=== PATIENT | female | born 1970 | race Caucasian/White ===

== ENCOUNTER 2019-09-05 19:12 | Emergency (ER) | payer SELFPAY ==
[2019-09-05 19:25] VITALS: BP 150/100; PULSE 95; RESP 18; TEMP 36.4; O2SAT 97; BMI 21.9
--- NOTE | 2019-09-05 19:35 | W.ED.PSYCH ---
HPI - Psych General: Chief Complaint: Psychiatric Symptoms Stated Complaint: SI Time Seen by Provider: 09/05/19 19:24 Source: patient and EMS Mode of arrival: EMS Limitations: no limitations History of Present Illness: HPI Narrative: 49-year-old female is here by EMS. Patient had her optical effects layout person called her house for disturbance. She had made a suicidal statement to them. She states to me she was just upset denies being suicidal at this point. Patient has no medical complaints at this time. Associated symptoms: Reports depression Review of Systems Const: Denies: fever(s), chills, body aches or change in appetite Eyes: Denies: blurry vision or eye discomfort ENMT: Denies: throat pain or dental pain Card: Denies: chest pain Resp: Denies: dyspnea GI: Denies: abdominal pain, nausea, vomiting or diarrhea : Denies: dysuria Musc: Denies: neck pain or back pain Skin/Breast: Denies: rash Neuro: Denies: headache(s) Psych: Reports: depression Eugenio/Lymph: Denies: easy bruising All/Imm: Denies: urticaria Physical Exam Const: COMMON NORMALS: no acute distress, patient oriented x3 and healthy appearing HENMT: COMMON NORMALS: normocephalic and atraumatic HEAD & SCALP: normocephalic and atraumatic Eye: COMMON NORMALS: Equal, round and reactive pupils present and EOMs intact bilaterally PUPIL: Yes Equal, round and reactive pupils present Neck/C-Spine: COMMON NORMALS: full ROM and supple Chest: COMMONS NORMALS: normal inspection of the chest and normal palpation of entire chest wall Resp: COMMON NORMALS: normal respiratory effort, No retractions, No use of accessory muscles and clear to auscultation bilaterally AUSCULTATION: clear to auscultation bilaterally Cardio: COMMON NORMALS: regular rate, regular rhythm and No murmurs present (Cardio) RATE: regular rate RHYTHM: regular rhythm GI: COMMON NORMALS: Normal to inspection, nondistended, normoactive bowel sounds present, Soft to palpation, non-tender and no masses PALPATION: Yes Soft to palpation Extremity: COMMON NORMALS: normal to inspection and full ROM Neuro: COMMON NORMALS: patient oriented x3, moves all extremities and no focal motor deficits Psych: COMMON NORMALS: mental status grossly normal, Normal thought process present and cooperative THOUGHT PROCESS: Normal thought process present Skin: COMMON NORMALS: no rashes or lesions noted and no wounds GENERAL SKIN EXAM: no rashes or lesions noted MDM - Psych MDM Narrative: Medical decision making narrative: Patient presents here with depression with no active suicidality. Patient spoke to Dr. Valadez of psychiatry he agrees that she is not actively suicidal and does not believe she needs admission. We will get her follow-up with both cars and she is stable for discharge. I informed her to return to the ER if worsening. Lab Data: Labs: Lab Results 09/05/19 09/05/19 Range/Units 19:35 19:35 WBC 4.7 (4.0-10.0) 10^3/ uL RBC 3.60 L (4.1-5.3) 10^6/u L Hgb 12.2 (11.5-15.3) g/dL Hct 36.6 L (37.0-47.0) % MCV 101.7 H (81-99) fL MCH 33.9 (28.0-34.0) pg MCHC 33.3 (30.0-36.0) g/dL RDW 14.1 (12.1-15.1) % Plt Count 189 (130-400) 10^3/c mm MPV 10.5 H (7.4-10.4) fL Neut % (Auto) 49.3 % Lymph % (Auto) 39.5 % [place] % (Auto) 8.4 % Eos % (Auto) 1.1 % Baso % (Auto) 1.1 % Neut # (Auto) 2.30 (1.8-7.7) 10^3/u L Lymph # (Auto) 1.8 (0.8-4.8) 10^3/u L [place] # (Auto) 0.4 (0.2-0.9) 10^3/u L Eos # (Auto) 0.1 (0.0-0.8) 10^3/u L Baso # (Auto) 0.1 (0.0-0.1) 10^3/u L Nucleated RBC % (a uto) 0 % Nucleated RBCs # 0.0 /100WBC Sodium 144 (136-145) mmol/L Potassium 3.4 L (3.5-5.1) mmol/L Chloride 106 (98-107) mmol/L Carbon Dioxide 25 (22-29) mmol/L Anion Gap 16.4 (5-19) BUN 6 (6-20) mg/dL Creatinine 0.7 (0.5-0.9) mg/dL GFR Calculation 88.6 L (90-130) mL/min Glucose 106 (65-115) mg/dL Calculated Osmolal ity 294 (285-295) mOsm/k g Calcium 9.5 (8.5-10.5) mg/dL Total Bilirubin 0.2 (0.15-1.2) mg/dL AST 54 H (0-32) U/L ALT 24 (0-33) U/L Alkaline Phosphata se 98 (35-105) IU/L Total Protein 7.7 (6.6-8.7) g/dL Albumin 4.8 (3.5-5.2) g/dL Globulin 2.9 (1.3-4.6) g/dL Discharge Plan Discharge Patient Disposition: Home Clinical Impression: Alcohol use Depression Qualifiers: Depression Type: unspecified Qualified Code(s): F32.9 - Major depressive disorder, single episode, unspecified Condition: Stable Prescriptions: No Action No Known Home Medications RF: 0 Discharge Orders: Discharge Order (Routine); Ordered 09/05/19 Ordered By: Zuri Borja Discharge Diet: Advance as tolerated Discharge Activity: Resume usual activity Patient Instructions: Depression (ED) Discharge Date/Time: 09/05/19 20:27 Coding Level of Care Code ED State Auditor for Macy Fwd Exam Comprehensive
[2019-09-05 19:40] LABS: Basophils # 0.1 10^3/uL (0.0-0.1); Basophils % 1.1 %; Eosinophils # 0.1 10^3/uL (0.0-0.8); Eosinophils % 1.1 %; Hematocrit 36.6 % (37.0-47.0); Hemoglobin 12.2 g/dL (11.5-15.3); Lymphocytes # 1.8 10^3/uL (0.8-4.8); Lymphocytes % 39.5 %; Mean Corpuscular HGB Conc 33.3 g/dL (30.0-36.0); Mean Corpuscular Hemoglobin 33.9 pg (28.0-34.0); Mean Corpuscular Volume 101.7 fL (81-99); Mean Platelet Volume 10.5 fL (7.4-10.4); Monocytes # 0.4 10^3/uL (0.2-0.9); Monocytes % 8.4 %; Neutrophils % 49.3 %; Nucleated Red Blood Cells % 0 %; Platelet Count 189 10^3/cmm (130-400); Red Cell Distribution Width 14.1 % (12.1-15.1); White Blood Count 4.7 10^3/uL (4.0-10.0)
[2019-09-05 20:06] LABS: Alanine Aminotransferase 24 U/L (0-33); Albumin Level 4.8 g/dL (3.5-5.2); Alkaline Phosphatase 98 IU/L (35-105); Anion Gap 16.4 (5-19); Aspartate Amino Transferase 54 U/L (0-32); Blood Urea Nitrogen 6 mg/dL (6-20); Calcium 9.5 mg/dL (8.5-10.5); Carbon Dioxide 25 mmol/L (22-29); Chloride 106 mmol/L (98-107); Globulin 2.9 g/dL (1.3-4.6); Glomerular Filtration Rate 88.6 mL/min (90-130); Glucose 106 mg/dL (65-115); Osmolality Calculated 294 mOsm/kg (285-295); Potassium 3.4 mmol/L (3.5-5.1); Sodium 144 mmol/L (136-145); Total Bilirubin 0.2 mg/dL (0.15-1.2); Total Protein 7.7 g/dL (6.6-8.7)
[2019-09-05 20:21] VITALS: BP 136/102; PULSE 98; RESP 18; O2SAT 96
[2019-09-05 20:30] LABS: Acetaminophen < 5.0 ug/mL (10-30); Salicylate < 0.3 mg/dL (3-10)
[2019-09-05 20:32] LABS: Alcohol Level 337 mg/dL (0-10)
--- NOTE | 2019-09-06 08:48 | PC.SOCIAL ---
Referral from ED provider spoke with staff at [facility] and Yanelis the resident care coordinator has been notified of patient needing set up. She will send out paperwork and follow up with patient. Spoke with patient and updated her on this process since she has not been seen in last year. Provided [facility] number as well. Patient was appreciative and verbalized no other questions.
== END 2019-09-05 20:27 | disposition home or self-care (01) ==
PROVIDERS: Emergency Provider Emergency Medicine
DX: F32.9 Major depressive disorder, single episode, unspecified (principal); Z72.89 Other problems related to lifestyle
CPT/HCPCS: 12345; 36415; 80053; 80307; 85025; 99282

== ENCOUNTER 2021-08-01 18:31 | Emergency (ER) | payer MEDICAID, SELFPAY ==
[2021-08-01 18:40] VITALS: BP 146/89; PULSE 100; RESP 18; TEMP 36.7; O2SAT 94; BMI 21.2
--- NOTE | 2021-08-01 18:49 | XRR_ITS ---
PROCEDURE INFORMATION: Exam: XR Right Elbow Exam date and time: 08/01/2021 7:11 PM Age: 51 years old Clinical indication: Injury or trauma; Fall; Blunt trauma (contusions or hematomas); Elbow; Right; Additional info: Fall R elbow pain TECHNIQUE: Imaging protocol: Radiologic exam of the Right elbow. Views: 3 or more views. COMPARISON: CR Clavicle RIGHT 02/20/2015 12:22 PM FINDINGS: Bones/joints: Enthesophyte off the lateral epicondyle of the distal humerus. Radial head not well seen secondary to positioning. Soft tissues: Anterior fat pad appears elevated. XR/XR elbow RT min 3V* [id number] IMPRESSION: 1. Anterior fat pad appears elevated raising concern for occult fracture. 2. Radial head is not well seen secondary to positioning. CT scan of the elbow recommended for further evaluation.
--- NOTE | 2021-08-01 18:49 | XRR_ITS ---
PROCEDURE INFORMATION: Exam: XR Chest Exam date and time: 08/01/2021 7:04 PM Age: 51 years old Clinical indication: Injury or trauma; Fall; Blunt trauma (contusions or hematomas) TECHNIQUE: Imaging protocol: Radiologic exam of the chest. Views: 1 view. COMPARISON: CR Clavicle RIGHT 02/20/2015 12:22 PM FINDINGS: Lungs: Unremarkable. No consolidation. Pleural spaces: Unremarkable. No pleural effusion. No pneumothorax. Heart/Mediastinum: Unremarkable. No cardiomegaly. Bones/joints: There are fractures of unknown chronicity at the posterior aspects of the right 9th and 10th ribs. No significant displacement is seen. XR/XR chest 1V portable [id number] IMPRESSION: There are fractures of unknown chronicity at the posterior aspects of the right 9th and 10th ribs.
--- NOTE | 2021-08-01 18:49 | XRR_ITS ---
PROCEDURE INFORMATION: Exam: XR Right Hip Exam date and time: 08/01/2021 7:09 PM Age: 51 years old Clinical indication: Injury or trauma; Fall; Blunt trauma (contusions or hematomas); Right; Hip; Additional info: Fall R hip pain TECHNIQUE: Imaging protocol: Radiologic exam of the Right hip. Views: 1 view hip with pelvis when performed. COMPARISON: No relevant prior studies available. FINDINGS: Bones/joints: There small marginal osteophytes across the right hip joint. There are [id number] degenerative changes across the pubic symphysis and right sacroiliac joint. There is edema and/or hematoma in the soft tissues lateral to the right greater trochanter. There is an ill-defined oblique lucency through the lateral aspect of the greater trochanter seen on 1 image only. Soft tissues: There are benign-appearing soft tissue calcifications. XR/XR hip RT 2-3V wo/w pel* [id number] IMPRESSION: 1. Ill-defined oblique lucency through the lateral aspect of the greater trochanter is seen only on 1 image and may be artifactual. Nondisplaced fracture cannot be excluded. Consider CT scan of the right hip for further evaluation as clinically warranted. 2. There is edema and/or hematoma in the soft tissues lateral to the right greater trochanter.
--- NOTE | 2021-08-01 19:00 | ED_ITS ---
HPI - Fall General: Chief Complaint: Fall Stated Complaint: RIGHT HIP/ELBOW PAIN S/P FALL Time Seen by Provider: 08/01/21 18:34 Source: patient History of Present Illness: 51-year-old female who evidently fell last night in her home. She experienced right hip and right elbow pain. The pain has been quite severe. She could only scoot around on the floor to get to the bathroom into the bed. She also used an office chair with wheels to roll around. She seems very slightly confused/possibly intoxicated on interview. MD complaint: fall Onset (ago): hour(s) Fall from: standing Fall witnessed: yes, by family Place fall occurred: home Loss of consciousness: None Prolonged down time: no Symptoms prior to fall: none Context: tripped/slipped Location of injury - extremities: Right: elbow and thigh Severity: moderate Quality: stabbing Associated symptoms-after fall: Reports confusion (Possibly mild); Denies abdominal pain, chest pain, headache(s), neck pain, short of breath or weakness Review of Systems Const: Denies: fever(s) or chills ENMT: Denies: throat pain Card: Denies: chest pain GI: Denies: abdominal pain Musc: Denies: neck pain Neuro: Reports: confusion (Possibly mild); Denies: headache(s) PFSH ED PFSH: Medical History (Updated 08/01/21 @ 20:56 by Can Lehman DO) NASEEM (generalized anxiety disorder) Problems related to lack of adequate sleep Psychiatric care Social History Current gender identity: Female Course Vital Signs: Vital signs: Vital Signs Temperature 98.0 F 08/01/21 18:40 Pulse Rate 94 08/01/21 21:34 Respiratory Rate 18 08/01/21 21:34 Blood Pressure 152/94 08/01/21 21:34 Pulse Oximetry 94 08/01/21 21:34 MDM - Fall Medical Decision Making Alcohol level is elevated. This patient is a potassium of 2.9. Other labs are benign. Elbow x-ray shows an elevated fat pad. CT is suggested, but there is no displaced fracture noted. There is appears to be a slight deformity of the radial neck, which would account for the fat pad. CT not really clinically indicated, as the treatment is a sling and early motion. X-ray of the hip reveals a greater trochanteric nondisplaced fracture. Again CT is suggested, but not clinically necessary. This is a nonsurgical fracture. Chest x-ray reveals likely chronic fractures of the ninth and 10th ribs. The patient has no tenderness in her chest wall that is significant. No evidence of lung contusion. No pneumothorax. She will be discharged. Lab Data : 08/01/21 18:30 08/01/21 18:30 Radiology Impressions Chest X-Ray 08/01/21 18:49 IMPRESSION: There are fractures of unknown chronicity at the posterior aspects of the right 9th and 10th ribs. Elbow X-Ray 08/01/21 18:49 IMPRESSION: 1. Anterior fat pad appears elevated raising concern for occult fracture. 2. Radial head is not well seen secondary to positioning. CT scan of the elbow recommended for further evaluation. Hip/Pelvis X-Ray 08/01/21 18:49 IMPRESSION: 1. Ill-defined oblique lucency through the lateral aspect of the greater trochanter is seen only on 1 image and may be artifactual. Nondisplaced fracture cannot be excluded. Consider CT scan of the right hip for further evaluation as clinically warranted. 2. There is edema and/or hematoma in the soft tissues lateral to the right greater trochanter. Laboratory Results WBC 9.0 10^3/uL (4.0-10.0) 08/01/21 18:30 RBC 3.71 10^6/uL (4.1-5.3) L 08/01/21 18:30 Hgb 11.9 g/dL (11.5-15.3) 08/01/21 18: Hct 36.2 % (37.0-47.0) L 08/01/21 18: MCV 97.6 fl (81-99) 08/01/21 18:30 MCH 32.1 pg (28.0-34.0) 08/01/21 18:30 MCHC 32.9 g/dL (30.0-36.0) 08/01/21 18:30 RDW 13.2 % (12.1-15.1) 08/01/21 18:30 Plt Count 263 10^3/cmm (130-400) 08/01/21 18: MPV 10.9 fL (7.4-10.4) H 08/01/21 18:30 Neut % (Auto) 68.1 % 08/01/21 18:30 Lymph % (Auto) 21.4 % 08/01/21 18:30 [place] % (Auto) 9.7 % 08/01/21 18:30 Eos % (Auto) 0.2 % 08/01/21 18:30 Baso % (Auto) 0.3 % 08/01/21 18:30 Neut # (Auto) 6.13 10^3/uL (1.8-7.7) 08/01/21 18:30 Lymph # (Auto) 1.9 10^3/uL (0.8-4.8) 08/01/21 18:30 [place] # (Auto) 0.9 10^3/uL (0.2-0.9) 08/01/21 18:30 Eos # (Auto) 0.0 10^3/uL (0.0-0.8) 08/01/21 18:30 Baso # (Auto) 0.0 10^3/uL (0.0-0.1) 08/01/21 18:30 Nucleated RBC % (auto) 0 % 08/01/21 18:30 Nucleated RBCs # 0.0 /100WBC 08/01/21 18:30 PT 14.00 SECONDS (12.1-14.9) 08/01/21 20:15 INR 1.05 (0.8-1.2) 08/01/21 20:15 Sodium 140 mmol/L (136-145) 08/01/21 18:30 Potassium 2.9 mmol/L (3.5-5.1) L 08/01/21 18:30 Chloride 99 mmol/L (98-107) 08/01/21 18:30 Carbon Dioxide 23 mmol/L (22-29) 08/01/21 18:30 Anion Gap 20.9 (5-19) H 08/01/21 18:30 BUN 7 mg/dL (6-20) 08/01/21 18:30 Creatinine 0.6 mg/dL (0.5-0.9) 08/01/21 18:30 GFR Calculation 105.0 mL/min (90-130) 08/01/21 18:30 Glucose 86 mg/dL (65-115) 08/01/21 18:30 Calculated Osmolality 287 mOsm/kg (285-295) 08/01/21 18:30 Calcium 9.1 mg/dL (8.5-10.5) 08/01/21 18:30 Total Bilirubin 0.5 mg/dL (0.15-1.2) 08/01/21 18:30 AST 27 U/L (0-32) 08/01/21 18:30 ALT 9 U/L (0-33) 08/01/21 18:30 Alkaline Phosphatase 78 IU/L (35-105) 08/01/21 18:30 Total Protein 7.4 g/dL (6.6-8.7) 08/01/21 18:30 Albumin 4.3 g/dL (3.5-5.2) 08/01/21 18:30 Globulin 3.1 g/dL (1.3-4.6) 08/01/21 18:30 Ethyl Alcohol 208 mg/dL (0-10) H 08/01/21 18:30 Discharge Plan Discharge Patient Disposition: Home Clinical Impression: Closed fracture of greater trochanter of right femur, Fracture of neck of right radius, Alcohol intoxication Condition: Stable Prescriptions: New hydrocodone-acetaminophen 5-325 mg tablet 1 tab PO Q8H PRN (Reason: pain) Qty: 10 0RF No Action trazodone 150 mg tablet 150 mg PO .qhs PRN (Reason: insomnia) Qty: 30 1RF Rx Instructions: May take up to 1 tablet daily at bedtime, if needed for insomnia fluoxetine 20 mg capsule 20 mg PO QAM Qty: 30 1RF Rx Instructions: Take one capsule by mouth every morning clonazepam 0.5 mg tablet 0.5 mg PO DAILY PRN (Reason: anxiety) 30 Days Qty: 60 1RF Rx Instructions: take one tablet up to twice a day, if needed, for anxiety losartan 100 mg tablet 100 mg PO DAILY 0RF Discharge Orders: Discharge ED (Routine); Ordered 08/01/21 Ordered By: Can Lehman Referrals: Volodymyr Driver DO [Physician] - 4-7 days Bethel Beth MD [Primary Care Provider] - 4-7 days Patient Instructions: Elbow Fracture (ED), Avulsion Fracture (ED), Opioid Safety Activity Restrictions/Additional Instructions: Your fractures are nonsurgical. Your weightbearing should be limited to toe- touch on the right hip, so use a crutch in your left hand for weightbearing. Sling to the right elbow, with early motion in the first 5 to 7 days. Ice will help with pain. Call orthopedic clinic on Tuesday morning to set up an appointment this coming week. Return for any problems. Coding Level of Care Code ED Sales Planning Coordinator for Macy Perez
[2021-08-01 19:07] LABS: Basophils % 0.3 %; Eosinophils % 0.2 %; Hematocrit 36.2 % (37.0-47.0); Hemoglobin 11.9 g/dL (11.5-15.3); Lymphocytes # 1.9 10^3/uL (0.8-4.8); Lymphocytes % 21.4 %; Mean Corpuscular HGB Conc 32.9 g/dL (30.0-36.0); Mean Corpuscular Hemoglobin 32.1 pg (28.0-34.0); Mean Corpuscular Volume 97.6 fl (81-99); Mean Platelet Volume 10.9 fL (7.4-10.4); Monocytes # 0.9 10^3/uL (0.2-0.9); Monocytes % 9.7 %; Neutrophils # 6.13 10^3/uL (1.8-7.7); Neutrophils % 68.1 %; Nucleated Red Blood Cells % 0 %; Platelet Count 263 10^3/cmm (130-400); Red Blood Count 3.71 10^6/uL (4.1-5.3); Red Cell Distribution Width 13.2 % (12.1-15.1)
[2021-08-01 19:17] LABS: Alanine Aminotransferase 9 U/L (0-33); Albumin Level 4.3 g/dL (3.5-5.2); Alcohol Level 208 mg/dL (0-10); Alkaline Phosphatase 78 IU/L (35-105); Anion Gap 20.9 (5-19); Aspartate Amino Transferase 27 U/L (0-32); Blood Urea Nitrogen 7 mg/dL (6-20); Calcium 9.1 mg/dL (8.5-10.5); Carbon Dioxide 23 mmol/L (22-29); Chloride 99 mmol/L (98-107); Globulin 3.1 g/dL (1.3-4.6); Glucose 86 mg/dL (65-115); Osmolality Calculated 287 mOsm/kg (285-295); Sodium 140 mmol/L (136-145); Total Bilirubin 0.5 mg/dL (0.15-1.2); Total Protein 7.4 g/dL (6.6-8.7)
--- NOTE | 2021-08-01 19:18 | PC.NURSE ---
Pt states she was walking down the road and tripped over a tree limb. Pt stated she laid in the laid for a few minutes then I walked home approximately 3 blocks. Pt states she caught herself with the right arm, and has become painful and difficult to move. Pt states right hip may be dislocated and she can not walk on it. Bilateral pedal pulse palpitable.
[2021-08-01 19:20] VITALS: BP 130/85; PULSE 103; RESP 18; O2SAT 93
[2021-08-01] MEDS: sodium chloride 0.9% 1,000 ML 999 ML IV (19:29)
[2021-08-01 19:34] LABS: Potassium 2.9 mmol/L (3.5-5.1)
[2021-08-01] MEDS: potassium chloride ER 20 mEq Tablet 40 MEQ PO (20:14)
[2021-08-01 20:30] LABS: INR 1.05 (0.8-1.2)
[2021-08-01 21:34] VITALS: BP 152/94; PULSE 94; RESP 18; O2SAT 94
== END 2021-08-01 21:35 | disposition home or self-care (01) ==
PROVIDERS: Emergency Provider Emergency Medicine; PCP Family Medicine
DX: S72.111A Displaced fracture of greater trochanter of right femur, initial encounter for closed fracture (principal); S52.131A Displaced fracture of neck of right radius, initial encounter for closed fracture; F10.129 Alcohol abuse with intoxication, unspecified; Y90.7 Blood alcohol level of 200-239 mg/100 ml; W19.XXXA Unspecified fall, initial encounter
CPT/HCPCS: 71045; 73080; 73502; 80053; 80307; 85025; 85610; 96360; 99284; E0114; J7030

== ENCOUNTER 2022-09-29 10:46 | Emergency (ER) | payer MEDICAID, SELFPAY ==
[2022-09-29 10:50] VITALS: BP 191/109; PULSE 80; RESP 15; O2SAT 99
--- NOTE | 2022-09-29 11:44 | PC.PHAR ---
pt states she takes 800 mg of ibuprofen and two midol all at one time for pain
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
[2022-09-29] MEDS: ketorolac 60 mg/2 mL INJ IM (12:37)
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
[2022-09-29 13:29] VITALS: RESP 18; O2SAT 98
[2022-09-29] MEDS: morphine 4 mg/mL SDV 1 mL IM (13:29)
--- NOTE | 2022-09-30 09:38 | DCPLANNER ---
Addendum entered by Yissel Boateng 10/08/22 10:33: Patient did not attend appointment scheduled with ortho Addendum entered by Yissel Boateng 10/06/22 12:37: Patient has a follow up appointment scheduled for September at 11:00 with Bushra Carroll at ortho. Addendum entered by Yissel Boateng 10/04/22 15:36: clinical nutrition manager received the following message from the ortho clinic regarding follow up appointment: attempt made to contact patient - left vm to call our clinic to schedule w/ dr dickens or bushra lozano - we can get in next week Original Note: clinical nutrition manager had message to schedule a follow up appointment for patient with ortho. clinical nutrition manager sent patients information to the front office staff at ortho. Patients information will be printed and reviewed. Clinic will call patient with appointment information.
--- NOTE | 2022-10-04 15:37 | DCPLANNER ---
logistics project manager called patient due to no primary care physician - no answer at this time.
== END 2022-09-29 15:02 | disposition home or self-care (01) ==
PROVIDERS: Emergency Provider Physician Assistant
DX: S32.10XA Unspecified fracture of sacrum, initial encounter for closed fracture (principal); V29.39XA Other motorcycle (driver) (passenger) injured in unspecified nontraffic accident, initial encounter
CPT/HCPCS: 72192; 72220; 73030; 73130; 73522; 96372; 99284; J1885; J2270

== ENCOUNTER → 2022-11-03 10:11 | Outpatient (BNVA) | payer MEDICAID, SELFPAY | PROVIDERS: Visit Provider Family Medicine | DX: M79.671 Pain in right foot (principal) | CPT/HCPCS: 73630 ==

== ENCOUNTER → 2023-05-04 09:25 | Outpatient (BNVA) | payer MEDICAID, SELFPAY | PROVIDERS: Visit Provider Podiatrist Foot & Ankle Surgery | DX: M19.072 Primary osteoarthritis, left ankle and foot; S92.325S Nondisplaced fracture of second metatarsal bone, left foot, sequela; V20.09 Other motorcycle driver injured in collision with pedestrian or animal in nontraffic accident | CPT/HCPCS: 73630 ==

== ENCOUNTER 2023-09-06 10:56 | Emergency (ER) | payer MEDICAID, SELFPAY ==
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
[2023-09-06 11:00] VITALS: BP 156/96; PULSE 79; TEMP 36.9; O2SAT 98; BMI 19.8
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
[2023-09-06 11:10] VITALS: PULSE 69; RESP 16; O2SAT 98
[2023-09-06] MEDS: HYDROcodone-acetaminophen 5-325 mg Tablet 1 TAB PO (11:15)
--- NOTE | 2023-09-07 07:30 | DCPLANNER ---
Message sent to Danni/ Melissa for follow up on knee sprain-
== END 2023-09-06 12:15 | disposition home or self-care (01) ==
PROVIDERS: Emergency Provider Emergency Medicine
DX: S83.91XA Sprain of unspecified site of right knee, initial encounter (principal); Z72.0 Tobacco use; W18.40XA Slipping, tripping and stumbling without falling, unspecified, initial encounter
CPT/HCPCS: 29530; 73562; 99283; E0114

== ENCOUNTER → 2023-09-30 10:33 | Outpatient (BNVA) | payer OTHER, MEDICAID, SELFPAY | PROVIDERS: PCP Nurse Practitioner; Referring Provider Emergency Medicine; Visit Provider Nurse Practitioner | DX: M25.561 Pain in right knee (principal); S83.206A Unspecified tear of unspecified meniscus, current injury, right knee, initial encounter; Z87.828 Personal history of other (healed) physical injury and trauma; W10.9XXA Fall (on) (from) unspecified stairs and steps, initial encounter | CPT/HCPCS: 73560; 73565 ==

== ENCOUNTER 2024-03-30 08:57 | Inpatient (IN) | payer MEDICAID, SELFPAY ==
[2024-03-30] VITALS (9 sets, daily range): BP systolic 146–169; BP diastolic 92–130; PULSE 85–103; RESP 15–95; TEMP 36.4–37.5; O2SAT 94–98; BMI 21.9
--- NOTE | 2024-03-30 09:04 | XR_ITS ---
WS: [id number] Exam: XR chest 1V portable [id number] Date/Time of Exam: 03/30/2024 9:06 AM Reason For Exam: dyspnea/cough Comparison 08/01/2021. Lungs are clear and fully inflated. Normal cardiomediastinal silhouette. Bony structures are intact. XR/XR chest 1V portable [id number] IMPRESSION: 1. No acute cardiopulmonary finding.
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
--- NOTE | 2024-03-30 09:05 | ECG_ITS ---
All Together Now [facility] Test Date: 2024-03-30 Pat Name: Alison Craig Department: Room: Gender: Female Portable Canteen Operator: : 1970 Requested By: Efraín Quiles Order Number: [id number] Reading MD: CRUZITO SOTO Measurements Intervals [place] Rate: 94 P: 67 [place]: 120 QRS: 18 QRSD: 76 T: 83 QT: 363 QTc: 455 Interpretive Statements SINUS RHYTHM POSSIBLE RIGHT VENTRICULAR CONDUCTION DELAY [RSR (QR) IN V1/V2] Compared to ECG 12/25/2014 06:07:08 No significant changes Electronically Signed On 04-03-2024 23:44:32 FUNDRAISING MANAGER by CRUZITO SOTO [email or web address]
--- NOTE | 2024-03-30 09:38 | ED_ITS ---
HPI - Extremity Problem 2 General: Chief complaint: Extremity Injury, Upper Stated complaint: right humerus fx Time Seen by Provider: 03/30/24 09:00 History of Present Illness: 53-year-old female presents to the emerg ency room obvious deformity of the proximal right humerus. She fell last night ground-level mechanical fall she had been drinking. She fell around 10 PM outside she was able to get herself back into the house laid on the floor all night. EMS was finally called and she refused transport at around 2 AM and called for this again allowed for transport this morning Associated symptoms: Deny chest pain, fever(s) or rash Related Data Home Medications ?Medication ?Instructions ?Recorded ?Confirmed lisinopril 20 mg tablet 20 mg PO DAILY 08/03/2303/11 Allergies Allergy/AdvReac Type Severity Reaction Status Date / Time No Known Allergies Allergy Verified 09/30/23 10:43 Review of Systems 2 Const: Denies: fever(s) or chills Card: Denies: chest pain Resp: Denies: dyspnea GI: Denies: abdominal pain : Denies: dysuria, urinary frequency or urinary urgency Musc: Denies: neck pain or back pain Skin/Breast: Denies: rash PFSH ED 2 PFSH: Medical History History of tear of ACL (anterior cruciate ligament) Jason sign present in right knee Fall from standing NASEEM (generalized anxiety disorder) Problems related to lack of adequate sleep Social History Smoking and tobacco/nicotine status: never used tobacco/nicotine Current gender identity: Female Physical Exam 2 Const: GENERAL APPEARANCE: cooperative ORIENTATION/CONSCIOUSNESS: Yes awake, Yes oriented to person, Yes oriented to place and Yes oriented to time HENMT: COMMON NORMALS: normocephalic, atraumatic and hearing grossly normal bilaterally HEAD & SCALP: normocephalic and atraumatic Resp: COMMON NORMALS: normal respiratory effort, No retractions, No use of accessory muscles and clear to auscultation bilaterally AUSCULTATION: clear to auscultation bilaterally Cardio: COMMON NORMALS: regular rate, regular rhythm and No murmurs present (Cardio) RATE: regular rate RHYTHM: regular rhythm GI: COMMON NORMALS: Soft to palpation and No hepatosplenomegaly present A USCULTATION: Yes normoactive bowel sounds PALPATION: Yes Soft to palpation, No Tenderness to palpation present (GI), No Guarding due to palpation present (GI) and Yes No hepatosplenomegaly present Extremity: OTHER: Deformity mid to proximal right humerus. Neurovascularly intact Neuro: SENSORIUM/ORIENTATION: Yes oriented to person, Yes oriented to place and Yes oriented to time Skin: COMMON NORMALS: no rashes or lesions noted GENERAL SKIN EXAM: no rashes or lesions noted Course 2 Vital Signs: Vital signs: Vital Signs Temperature 97.6 F 03/30/24 12:37 Pulse Rate 101 H 03/30/24 12:37 Respiratory Rate 16 03/30/24 13:40 Blood Pressure 168/130 03/30/24 12:37 Pulse Oximetry 95 03/30/24 12:37 Oxygen Delivery Me thod Room Air 03/30/24 12:37 MDM - Extremity (Nontraumatic) Medical Decision Making Patient's blood alcohol is still considerably elevated. She admits that been drinking fairly heavily last night when this happened. No concern for fracture may become aggravated if she continues to drink discussed with hospitalist will admit consult orthopedics have discussed Dr. Driver on-call for orthopedics he will proceed with [facility] Medical Records I reviewed the patient's medical records. Lab Data I reviewed the patient's lab results. 03/30/24 09:30 03/30/24 09:30 Radiology Impressions Cervical Spine CT 03/30/24 09:04 IMPRESSION: 1. No acute cervical spine fracture. 2. Left-sided facet joint arthropathy most significant at C3-4 and C4-5. 3. No high-grade central stenosis. Chest X-Ray 03/30/24 09:04 IMPRESSION: 1. No acute cardiopulmonary finding. Head CT 03/30/24 09:04 IMPRESSION: 1. No acute intracranial hemorrhage or edema. 2. Moderate cerebral atrophy and small vessel disease. More than expected for a patient of this age. 3. Numerous bilateral lacunar infarcts as above. Humerus X-Ray 03/30/24 09:04 IMPRESSION: 1. Comminuted spiral fracture of the upper humerus with some displacement as noted above. The fracture extends into the greater tuberosity. Laboratory Results WBC 14.16 10^3/uL (3.29-11.43) H 03/30/24 09:30 RBC 4.18 10^6/uL (3.85-5.65) 03/30/24 09:30 Hgb 12.60 g/dL (11.27-16.99) 03/30/24 09:30 Hct 38.4 % (36-47) 03/30/24 09:30 MCV 91.9 fl (85-98) 03/30/24 09:30 MCH 30.1 pg (27-33) 03/30/24 09:30 MCHC 32.8 g/dL (30-55) 03/30/24 09:30 RDW 15.2 % (12.1-15.1) H 03/30/24 09:30 Plt Count 344 10^3/cmm (157-399) 03/30/24:30 MPV 10.5 fL (7.4-10.4) H 03/30/24 09:30 Neut % (Auto) 87.3 % 03/30/24 09:30 Lymph % (Auto) 6.6 % 03/30/24:30 [place] % (Auto) 5.3 % 03/30/24 09:30 Eos % (Auto) 0.0 % 03/30/24 09:30 Baso % (Auto) 0.3 % 03/30/24 09:30 Neut # (Auto) 12.36 10^3/uL (1.8-7.7) H 03/30/24 09:30 Lymph # (Auto) 0.9 10^3/uL (0.8-4.8) 03/30/24 09:30 [place] # (Auto) 0.8 10^3/uL (0.2-0.9) 03/30/24 09:30 Eos # (Auto) 0.0 10^3/uL (0.0-0.8) 03/30/24 09:30 Baso # (Auto) 0.0 10^3/uL (0.0-0.1) 03/30/24 09:30 Nucleated RBC % (auto) 0 % 03/30/24:30 Nucleated RBCs # 0.0 /100WBC 03/30/24:30 PT 12.70 SECONDS (12.1-14.9) 03/30/24 09:30 INR 0.89 (0.8-1.2) 03/30/24 09:30 Sodium 140 mmol/L (136-145) 03/30/24 09:30 Potassium 3.8 mmol/L (3.5-5.1) 03/30/24 09:30 Chloride 100 mmol/L (98-107) 03/30/24 09:30 Carbon Dioxide 22 mmol/L (22-29) 03/30/24 09:30 Anion Gap 21.8 (5-19) H 03/30/24 09:30 BUN 13 mg/dL (6-20) 03/30/24 09:30 Creatinine 0.6 mg/dL (0.5-0.9) 03/30/24 09:30 GFR Calculation 104.2 mL/min (90-130) 03/30/24 09:30 Glucose 146 mg/dL (65-115) H 03/30/24 09:30 Calculated Osmolality 293 mOsm/kg (285-295) 03/30/24 09:30 Calcium 8.7 mg/dL (8.5-10.5) 03/30/24 09:30 Total Bilirubin 0.4 mg/dL (0.15-1.2) 03/30/24 09:30 AST 48 U/L (0-32) H 03/30/24 09:30 ALT 25 U/L (0-33) 03/30/24 09:30 Alkaline Phosphatase 108 U/L (35-105) H 03/30/24 09:30 Ammonia 19 umol/L (11-51) 03/30/24 09:30 Creatine Kinase 223 U/L (26-192) H 03/30/24 09:30 Total Protein 7.9 g/dL (6.6-8.7) 03/30/24 09:30 Albumin 4.3 g/dL (3.5-5.2) 03/30/24 09:30 Globulin 3.6 g/dL (1.3-4.6) 03/30/24 09:30 Lipase 23 U/L (13-60) 03/30/24 09:30 Ethyl Alcohol 75 mg/dL (0-10) H 03/30/24 09:30 All radiology interpretation(s) finalized by discharge Discharge Plan Discharge Patient Disposition: Admitted As Inpatient Admit Provider: Elier Curran Clinical Impression: Fall from standing, Closed right humeral fracture, Alcohol intoxication, ETOH abuse Condition: Stable Coding Level of Care Code ED Child Care Counselor for Macy Perez
[2024-03-30 09:51] LABS: Basophils % 0.3 %; Hematocrit 38.4 % (36-47); Lymphocytes # 0.9 10^3/uL (0.8-4.8); Lymphocytes % 6.6 %; Mean Corpuscular HGB Conc 32.8 g/dL (30-55); Mean Corpuscular Hemoglobin 30.1 pg (27-33); Mean Corpuscular Volume 91.9 fl (85-98); Mean Platelet Volume 10.5 fL (7.4-10.4); Monocytes # 0.8 10^3/uL (0.2-0.9); Monocytes % 5.3 %; Neutrophils # 12.36 10^3/uL (1.8-7.7); Neutrophils % 87.3 %; Nucleated Red Blood Cells % 0 %; Platelet Count 344 10^3/cmm (157-399); Red Blood Count 4.18 10^6/uL (3.85-5.65); Red Cell Distribution Width 15.2 % (12.1-15.1); White Blood Count 14.16 10^3/uL (3.29-11.43)
[2024-03-30 10:06] LABS: INR 0.89 (0.8-1.2)
[2024-03-30 10:11] LABS: Alanine Aminotransferase 25 U/L (0-33); Albumin Level 4.3 g/dL (3.5-5.2); Alcohol Level 75 mg/dL (0-10); Alkaline Phosphatase 108 U/L (35-105); Anion Gap 21.8 (5-19); Aspartate Amino Transferase 48 U/L (0-32); Blood Urea Nitrogen 13 mg/dL (6-20); Calcium 8.7 mg/dL (8.5-10.5); Carbon Dioxide 22 mmol/L (22-29); Chloride 100 mmol/L (98-107); Creatine Phosphokinase 223 U/L (26-192); Creatinine Clr Calc Pharmacy 105.5232; Globulin 3.6 g/dL (1.3-4.6); Glomerular Filtration Rate 104.2 mL/min (90-130); Glucose 146 mg/dL (65-115); Lipase 23 U/L (13-60); Osmolality Calculated 293 mOsm/kg (285-295); Potassium 3.8 mmol/L (3.5-5.1); Sodium 140 mmol/L (136-145); Total Bilirubin 0.4 mg/dL (0.15-1.2); Total Protein 7.9 g/dL (6.6-8.7)
[2024-03-30 10:12] LABS: Ammonia 19 umol/L (11-51)
--- NOTE | 2024-03-30 12:51 | P.HP_ITS ---
Providers/Chief Complaint 2 Admitting Physician: Elier Curran Primary Care Provider: ROOPA Quezada Chief Complaint: right humerus fx History of Present Illness Pleasant 53-year-old lady, current smoker, with history of NASEEM, sustained a fall on 03/29 at which time was seen by EMS after she was able to get herself back to the house from outside where she fell, at that time she declined being transported to the hospital, however, could not get around at home, did not feel well, he was having pain in her right arm, EMS was called back. On reassessment was found to have deformity of right upper extremity with finding of likely fracture after the fall. Transported to ER this morning. There are no assessment with x-ray with small amounts to have a comminuted spiral fracture of the upper humerus with some displacement, fracture extending into the greater tuberosity. Suspect alcohol intoxication last night, this morning EtOH level 75. Review of Systems 2 Const: Denies: fever(s), chills, body aches or malaise Eyes: Denies: change in vision, eye discomfort or eye redness ENMT: Denies: throat pain Card: Denies: chest pain, edema, pre-syncope or dyspnea on exertion Resp: Denies: dyspnea, productive cough, change in phlegm color or hemoptysis GI: Denies: abdominal pain, nausea, vomiting, diarrhea, constipation, hematochezia or melena : Denies: flank pain, urinary frequency or hematuria Musc: Reports: extremity pain; Denies: back pain, joint swelling or joint redness Skin/Breast: Denies: rash or new lesions Neuro: Denies: headache(s) or confusion Medications/Allergies Home Medications ?Medication ?Instructions ?Recorded ?Confirmed ?Last Taken ?Type lisinopril 20 mg tablet 20 mg PO DAILY 08/03/2303/11 Unknown History Allergies Allergy/AdvReac Type Severity Reaction Status Date / Time No Known Allergies Allergy Verified 09/30/23 10:43 PFSH Acute 2 PFSH: Medical History History of tear of ACL (anterior cruciate ligament) Jason sign present in right knee Fall from standing NASEEM (generalized anxiety disorder) Problems related to lack of adequate sleep Social History (Updated 03/30/24 @ 17:15 by Elier Curran MD) Smoking and tobacco/nicotine status: current every day tobacco/nicotine user Alcohol intake: current Substance/Drug Use: current Substance/Drug use frequency: Special occassions/opportunity only Substance/Drug use type: Marijuana Current gender identity: Female Vitals/I&O/Wt Last Vital Signs Temp 97.6 F 03/30/24 12:37 Pulse 101 H 03/30/24 12:37 Resp 95 H 03/30/24 12:37 BP 168/130 03/30/24 12:37 Pulse Ox 95 03/30/24 12:37 O2 Del Method Room Air 03/30/24 12:37 Weight last 48 hrs Weight 63.503 kg Weight 63.503 kg Physical Exam 2 Const: COMMON NORMALS: patient oriented x3 and alert GENERAL APPEARANCE: c ooperative ORIENTATION/CONSCIOUSNESS: Yes awake HENMT: COMMON NORMALS: oropharynx normal Neck/C-Spine: COMMON NORMALS: no JVD Resp: COMMON NORMALS: normal respiratory effort and clear to auscultation bilaterally AUSCULTATION: clear to auscultation bilaterally Cardio: COMMON NORMALS: no JVD, regular rhythm, S1 normal heart sound present, S2 normal heart sound present and No murmurs present (Cardio) RHYTHM: regular rhythm HEART SOUNDS: S1 normal heart sound present and S2 normal heart sound present GI: COMMON NORMALS: Normal to inspection, nondistended, normoactive bowel sounds present, Soft to palpation and non-tender PALPATION: Yes Soft to palpation Extremity: COMMON NORMALS: no joint enlargement and no pedal edema N ARRATIVE EXTREMITY EXAM: Right upper extremity sling OTHER: Able to move her hand, no loss of sensation in the hand. No swelling. Neuro: COMMON NORMALS: patient oriented x3 and moves all extremities S ENSORIUM/ORIENTATION: Yes alert Skin: COMMON NORMALS: no rashes or lesions noted GENERAL SKIN EXAM: no rashes or lesions noted Data 03/30/24 09:30 03/30/24 09:30 A&P Assessment and plan (1) Closed right humeral fracture: With comminuted spiral slightly displaced fracture, plans for surgical stabilization, later today. She is currently awake and alert, without signs of intoxication, monitor for signs of withdrawal. She otherwise states has been at baseline state of health. Denies having any exertional chest pressure, pain, dyspnea, or intolerance. Reviewed vitals, CBC, INR, CMP, CK, EtOH level, CT cervical spine, chest x-ray, head CT, humerus x-ray, ER provider note, discussed with ER provider. IV morphine as needed for severe pain, hydrocodone for moderate pain. Acetaminophen as needed. Zofran as needed. Incentive spirometer. SCD alone for now for DVT prophylaxis pending surgical intervention. Additional anticoagulation prophylaxis once deemed safe by surgery. (2) Alcohol intoxication: Alcohol intoxication last night, EtOH level still within blood today, but currently appears sober, monitor with CIWA protocol for any signs of withdrawal. She reports that she drinks about a liter of vodka in a week. She states that she previously used to drink beer every day and did have withdrawal, but had since cut down significantly. (3) Smoking addiction: Encourage smoking cessation. Discussed smoking cessation with her for 3-1/2 minutes with her. She declines nicotine replacement at this time, but she knows to let us know in case she gets cravings. Plan NASEEM PDMP PDMP Reviewed: Not Reviewed Attestations 2 Medical Necessity Statement*: Admission over 2 midnights anticipated for assessment management of comminuted spiral partially displaced fracture right humerus and a lady at risk of alcohol withdrawal. and High MDM includes amount and/or complexity of data reviewed/ordered [ previous or external records, resulted lab(s)/test(s), ordered lab(s)/test(s) and other healthcare professional discussion] and described risk of complication, morbidity or mortality of management as documented Diagnoses Closed right humeral fracture S42.301A Alcohol intoxication F10.929 Smoking addiction F17.200
[2024-03-30] MEDS: folic acid 1 mg Tablet PO (13:40)
[2024-03-30] MEDS: thiamine 100 mg Tablet PO (13:40)
[2024-03-30] MEDS: multivitamin therapeutic Tablet 1 TAB PO (13:40)
[2024-03-30] MEDS: morphine 4 mg/mL SDV 1 mL 2 MG IVP ×3 (13:40→21:54)
[2024-03-30] MEDS: HYDROcodone-acetaminophen 5-325 mg Tablet 1 TAB PO ×2 (16:49→23:26)
[2024-03-30 18:57] LABS: Bilirubin Urine 1+ (Negative); Blood Urine Trace (Negative); Glucose Urine UA Negative (Normal); Ketones Urine Trace (Negative); Leukocyte Esterase Urine 2+ (Negative); Nitrate Urine Negative (Negative); Protein Urine 1+ (Negative); Specific Gravity, Urine 1.024 (1.005-1.030); Urine Appearance Turbid (CLEAR)
[2024-03-30 19:08] LABS: Add Urine Microscopic? YES; RBC Urine 0-4 /hpf (0-2); Urine Color Orange (Yellow)
[2024-03-30 19:09] LABS: Add Urine Culture? Yes; Bacteria Urine 4+ /hpf; Squamous Epithelial Cell Urine 0-4 /hpf (0-5); WBC Urine >100 /hpf (0-5)
[2024-03-30] MEDS: cefTRIAXone 1,000 mg SDV 1000 MG IVP (21:53)
[2024-03-31] VITALS (11 sets, daily range): BP systolic 150–182; BP diastolic 78–119; PULSE 84–104; RESP 17–19; TEMP 36.9–37.7; O2SAT 93–98
[2024-03-31] MEDS: morphine 4 mg/mL SDV 1 mL 2 MG IVP ×5 (02:50→23:02)
[2024-03-31] MEDS: HYDROcodone-acetaminophen 5-325 mg Tablet 1 TAB PO ×4 (03:35→20:38)
--- NOTE | 2024-03-31 04:24 | PC.NURSE ---
Physician Notification Dr. Wyatt notified of patient expressing pain medication is not working. Patient stated she is in excruciating pain. Blood pressure is 182/78. This nurse requested if any other pain meds can be ordered. Physician was made aware of last given medications and physician gave orders to repeat 2mg morphine IVP dose at this time, with no further orders. Plan of care ongoing.
[2024-03-31 04:51] LABS: Basophils % 0.3 %; Eosinophils % 0.1 %; Hematocrit 34.3 % (36-47); Lymphocytes # 1.1 10^3/uL (0.8-4.8); Lymphocytes % 11.3 %; Mean Corpuscular HGB Conc 32.1 g/dL (30-55); Mean Corpuscular Hemoglobin 30.1 pg (27-33); Mean Platelet Volume 10.4 fL (7.4-10.4); Monocytes # 0.6 10^3/uL (0.2-0.9); Monocytes % 6.3 %; Neutrophils # 7.88 10^3/uL (1.8-7.7); Neutrophils % 81.6 %; Nucleated Red Blood Cells % 0 %; Platelet Count 238 10^3/cmm (157-399); Red Blood Count 3.65 10^6/uL (3.85-5.65); White Blood Count 9.66 10^3/uL (3.29-11.43)
[2024-03-31 05:15] LABS: Alanine Aminotransferase 17 U/L (0-33); Alkaline Phosphatase 102 U/L (35-105); Anion Gap 16.9 (5-19); Aspartate Amino Transferase 32 U/L (0-32); Blood Urea Nitrogen 23 mg/dL (6-20); Calcium 9.2 mg/dL (8.5-10.5); Carbon Dioxide 24 mmol/L (22-29); Chloride 96 mmol/L (98-107); Creatinine Clr Calc Pharmacy 62.4851; Globulin 3.3 g/dL (1.3-4.6); Glomerular Filtration Rate 57.8 mL/min (90-130); Glucose 141 mg/dL (65-115); Osmolality Calculated 282 mOsm/kg (285-295); Potassium 3.9 mmol/L (3.5-5.1); Sodium 133 mmol/L (136-145); Total Bilirubin 0.6 mg/dL (0.15-1.2); Total Protein 7.3 g/dL (6.6-8.7)
[2024-03-31] MEDS: multivitamin therapeutic Tablet 1 TAB PO (07:56)
[2024-03-31] MEDS: thiamine 100 mg Tablet PO (07:56)
[2024-03-31] MEDS: folic acid 1 mg Tablet PO (07:56)
[2024-03-31] MEDS: hyDRALAzine 20 mg/mL INJ 1 mL 5 MG IVP (09:07)
--- NOTE | 2024-03-31 13:24 | P.CONIM_ITS ---
Providers/Reason For Consult 2 Consulting Physician/Specialty*: Hospitalist Reason for Consult*: Right humerus fracture Attending Physician: Heena Pickard MD Primary Care Provider: ROOPA Quezada History of Present Illness History of Present Illness Alison Craig is a 53 year old female fell from ground level fall sustained a right humerus shaft fracture. Patient likely was intoxicated at the time. Review of Systems 2 Const: Denies: fever(s), chills, body aches or malaise Eyes: Denies: change in vision, eye discomfort or eye redness ENMT: Denies: throat pain Card: Denies: chest pain, edema, pre-syncope or dyspnea on exertion Resp: Denies: dyspnea, productive cough, change in phlegm color or hemoptysis GI: Denies: abdominal pain, nausea, vomiting, diarrhea, constipation, hematochezia or melena : Denies: flank pain, urinary frequency or hematuria Musc: Reports: extremity pain; Denies: back pain, joint swelling or joint redness Skin/Breast: Denies: rash or new lesions Neuro: Denies: headache(s) or confusion Medications/Allergies Home Medications ?Medication ?Instructions ?Recorded ?Confirmed ?Last Taken ?Type lisinopril 20 mg tablet 20 mg PO DAILY 08/03/2303/11 Unknown History Allergies Allergy/AdvReac Type Severity Reaction Status Date / Time No Known Allergies Allergy Verified 09/30/23 10:43 Current Medications Generic Name Dose Route Start Last Admin Trade Name Freq PRN Reason Stop Dose Admin Hydrocodone Bitart/Acetaminophen 1 tab 03/30/24 16:30 03/31/24 07:56 Hydrocodone-Acetaminophen 5-325 Mg Tablet PO 1 tab Q4H PRN Administration MODERATE PAIN Ceftriaxone Sodium 1,000 mg 03/30/24 21:00 03/30/24 21:53 Ceftriaxone 1,000 Mg Sdv IVP 1,000 mg Q24H THOM Administration Protocol Folic Acid 1 mg 03/30/24 12:25 03/31/24 07:56 Folic Acid 1 Mg Tablet PO 1 mg DAILY THOM Administration Morphine Sulfate 2 mg 03/30/24 12:46 03/31/24 12:19 Morphine 4 Mg/Ml Sdv 1 Ml IVP 2 mg Q4H PRN Administration SEVERE PAIN Multivitamins Therapeutic 1 tab 03/30/24 12:25 03/31/24 07:56 Multivitamin Therapeutic Tablet PO 1 tab DAILY THOM Administration Thiamine Mononitrate 100 mg 03/30/24 12:25 03/31/24 07:56 Thiamine 100 Mg Tablet PO 100 mg DAILY THOM Administration PFSH Acute 2 PFSH: Medical History History of tear of ACL (anterior cruciate ligament) Jason sign present in right knee Fall from standing NASEEM (generalized anxiety disorder) Problems related to lack of adequate sleep Social History (Updated 03/30/24 @ 17:15 by Elier Curran MD) Smoking and tobacco/nicotine status: current every day tobacco/nicotine user Alcohol intake: current Substance/Drug Use: current Substance/Drug use frequency: Special occassions/opportunity only Substance/Drug use type: Marijuana Current gender identity: Female Vitals/I&O/Wt Last Vital Signs Temp 98.4 F 03/31/24 11:32 Pulse 96 03/31/24 11:32 Resp 18 03/31/24 12:19 BP 171/107 03/31/24 11:32 Pulse Ox 98 03/31/24 12:19 O2 Del Method Room Air 03/31/24 11:32 03/30/24 03/31/24 03/31/24 22:59 06:59 14:59 Intake Total 480 / 480 Output Total 200 / 200 Balance 480 / 480 -200 / 280 Weight last 48 hrs Weight 135 lb 8 oz Weight 140 lb Weight 140 lb Physical Exam 2 Narrative: Alert and oriented x 3 Head is normocephalic atraumatic Respirations are intact No evidence of any rashes or infection 5/5 strength in bilateral upper and lowe r extremities Sensation intact in all extremities Radial nerve is intact Data 03/31/24 04:24 03/31/24 04:24 A&P Assessment and plan (1) Closed right humeral fracture: Will treat with coaptation brace. Have her follow-up in the clinic in 2 weeks. Qualifiers: Encounter type: initial encounter Humerus Location: shaft Fracture morphology: spiral Fracture alignment: displaced Qualified Code(s): S42.341A - Displaced spiral fracture of shaft of humerus, right arm, initial encounter for closed fracture PDMP PDMP Reviewed: Not Reviewed Consult Attestations 2 Medical Necessity Statement: Per primary service Coding Level of Care Code Acute Code for Chg Fwd Diagnoses Closed displaced spiral fracture of shaft of right humerus, initial encounter S42.341A Encounter type: initial encounter Humerus Location: shaft Fracture morphology: spiral Fracture alignment: displaced
[2024-03-31] MEDS: nicotine 21 mg Patch 1 PATCH TRANSDERMA (14:52)
--- NOTE | 2024-03-31 17:16 | P.PN_ITS ---
Subjective 2 Subjective: No new complaints today. Evaluated by orthopedics. Conservative management recommended. No operation currently. CIWA score ordered for this morning. Nausea is improving. Medications: Reviewed: Yes Vitals/I&O/Wt Last Vital Signs Temp 99.7 F H 03/31/24 15:39 Pulse 104 H 03/31/24 15:39 Resp 18 03/31/24 15:39 BP 171/102 03/31/24 15:39 Pulse Ox 97 03/31/24 15:39 O2 Del Method Room Air 03/31/24 15:39 03/31/24 03/31/24 03/31/24 06:59 14:59 22:59 Output Total 200 / 200 200 / 200 Balance -200 / 280 -200 / -200 Weight last 48 hrs Weight 61.462 kg Weight 63.503 kg Weight 63.503 kg Data 03/31/24 04:24 03/31/24 04:24 A&P Assessment and plan (1) Closed right humeral fracture: With comminuted spiral slightly displaced fracture, plans for surgical stabilization, later today. She is currently awake and alert, without signs of intoxication, monitor for signs of withdrawal. She otherwise states has been at baseline state of health. Denies having any exertional chest pressure, pain, dyspnea, or intolerance. Reviewed vitals, CBC, INR, CMP, CK, EtOH level, CT cervical spine, chest x-ray, head CT, humerus x-ray, ER provider note, discussed with ER provider. IV morphine as needed for severe pain, hydrocodone for moderate pain. Acetaminophen as needed. Zofran as needed. Incentive spirometer. SCD alone for now for DVT prophylaxis pending surgical intervention. Additional anticoagulation prophylaxis once deemed safe by surgery. Qualifiers: Encounter type: initial encounter Fracture alignment: displaced F racture morphology: spiral Humerus Location: shaft Qualified Code(s): S42.341A - Displaced spiral fracture of shaft of humerus, right arm, initial encounter for closed fracture (2) Alcohol intoxication: Alcohol intoxication last night, EtOH level still within blood today, but currently appears sober, monitor with CIWA protocol for any signs of withdrawal. She reports that she drinks about a liter of vodka in a week. She states that she previously used to drink beer every day and did have withdrawal, but had since cut down significantly. (3) Smoking addiction: Encourage smoking cessation. Discussed smoking cessation with her for 3-1/2 minutes with her. She declines nicotine replacement at this time, but she knows to let us know in case she gets cravings. Plan NASEEM March 31, 2024. CIWA score at 4 today. Low-grade fever 99.7 Fahrenheit. May be related to UTI versus alcohol withdrawal. Urine culture is currently pending. Check COVID/influenza PCR. Evaluated by orthopedics today. No surgical intervention indicated for now. Patient has a sling in place, we are trying to find her the appropriate clamshell brace from PT. Continue IV ceftriaxone while pending results of urine culture. PDMP PDMP Reviewed: Not Reviewed Attestations 2 Medical Necessity Statement*: Low-grade fever, continued monitoring for alcohol withdrawal, pending urine culture results. Coding Level of Care Code Acute Code for Chg Fwd Diagnoses Closed displaced spiral fracture of shaft of right humerus, initial encounter S42.341A Encounter type: initial encounter Fracture alignment: displaced Fracture morphology: spiral Humerus Location: shaft Alcohol intoxication F10.929 Smoking addiction F17.200
[2024-03-31] MEDS: lisinopril 20 mg Tablet PO (18:13)
--- NOTE | 2024-03-31 18:23 | PC.NURSE ---
Pt was unable to d/c today due to transportation issues and stated that she did not feel comfortable discharging today with her arm the way it was. Per Dr. Driver, OT to place clamshell brace and a nicotine patch was ordered. During 1800 rounding, pt stated that she had a ride to come get her and they were on their way. This nurse called Dr. Pickard as there were no d/c orders in at this time as we did not anticipate for pt to leave today. After calling to inform Dr. Pickard of pt requesting to d/c home, around 1819 pt stated that she no longer wanted to leave and her ride would just come tomorrow to get her. This nurse called Dr. Pickard back to inform her. Pt stated, I will need to leave by 8:00am in the morning due to my ride going to [place] for churce at 10:00am I informed patient that may not be a likely time as discharges are a little bit of a process and can be time consuming as the doctor will still need to round on her and their other patients after getting here around that time of a morning. Pt verbalized understanding.
[2024-03-31 19:06] LABS: Influenza A NEGATIVE (Negative); Influenza B NEGATIVE (Negative); Respiratory Syncytial Virus Ce NEGATIVE (Negative); SARS-CoV-2 PCR NEGATIVE (Negative)
[2024-03-31] MEDS: cefTRIAXone 1,000 mg SDV 1000 MG IVP (20:38)
[2024-04-01] VITALS: BP 123/78; PULSE 99; RESP 15; TEMP 37.4; O2SAT 95
[2024-04-01 04:00] VITALS: BP 117/75; PULSE 89; RESP 15; TEMP 37.1; O2SAT 94
[2024-04-01] MEDS: HYDROcodone-acetaminophen 5-325 mg Tablet 1 TAB PO ×2 (05:45→11:38)
[2024-04-01 06:06] LABS: Basophils % 0.5 %; Eosinophils # 0.1 10^3/uL (0.0-0.8); Eosinophils % 0.7 %; Hematocrit 32.2 % (36-47); Lymphocytes # 1.1 10^3/uL (0.8-4.8); Mean Corpuscular HGB Conc 31.4 g/dL (30-55); Mean Corpuscular Hemoglobin 30.3 pg (27-33); Mean Corpuscular Volume 96.7 fl (85-98); Mean Platelet Volume 10.7 fL (7.4-10.4); Monocytes # 0.5 10^3/uL (0.2-0.9); Monocytes % 6.9 %; Neutrophils # 5.94 10^3/uL (1.8-7.7); Neutrophils % 77.2 %; Nucleated Red Blood Cells % 0 %; Platelet Count 198 10^3/cmm (157-399); Red Blood Count 3.33 10^6/uL (3.85-5.65); Red Cell Distribution Width 14.9 % (12.1-15.1); White Blood Count 7.69 10^3/uL (3.29-11.43)
[2024-04-01 06:19] LABS: Alanine Aminotransferase 14 U/L (0-33); Albumin Level 3.6 g/dL (3.5-5.2); Alkaline Phosphatase 100 U/L (35-105); Anion Gap 15.7 (5-19); Aspartate Amino Transferase 28 U/L (0-32); Blood Urea Nitrogen 19 mg/dL (6-20); Calcium 9.1 mg/dL (8.5-10.5); Carbon Dioxide 24 mmol/L (22-29); Chloride 97 mmol/L (98-107); Creatinine Clr Calc Pharmacy 79.0734; Globulin 3.4 g/dL (1.3-4.6); Glomerular Filtration Rate 74.7 mL/min (90-130); Glucose 120 mg/dL (65-115); Osmolality Calculated 279 mOsm/kg (285-295); Potassium 3.7 mmol/L (3.5-5.1); Sodium 133 mmol/L (136-145); Total Bilirubin 0.4 mg/dL (0.15-1.2)
[2024-04-01] MEDS: folic acid 1 mg Tablet PO (07:39)
[2024-04-01] MEDS: nicotine 21 mg Patch 1 PATCH TRANSDERMA (07:39)
[2024-04-01 07:40] VITALS: RESP 16; O2SAT 97
[2024-04-01] MEDS: morphine 4 mg/mL SDV 1 mL 2 MG IVP (07:40)
[2024-04-01] MEDS: multivitamin therapeutic Tablet 1 TAB PO (07:40)
[2024-04-01] MEDS: thiamine 100 mg Tablet PO (07:40)
[2024-04-01] MEDS: lisinopril 20 mg Tablet PO (07:40)
[2024-04-01 07:44] VITALS: BP 127/82; PULSE 112; RESP 18; TEMP 36.7; O2SAT 93
[2024-04-01 11:25] VITALS: BP 125/82; PULSE 101; RESP 16; TEMP 36.7; O2SAT 97
--- NOTE | 2024-04-01 12:37 | P.PN_ITS ---
Subjective 2 Subjective: Patient is getting ready to leave she is in the coaptation splint with a sling on she is comfortable. Vitals/I&O/Wt Last Vital Signs Temp 98.1 F 04/01/24 11:25 Pulse 101 H 04/01/24 11:25 Resp 16 04/01/24 11:25 BP 125/82 04/01/24 11:25 Pulse Ox 97 04/01/24 11:25 O2 Del Method Room Air 04/01/24 11:25 03/31/24 04/01/24 04/01/24 22:59 06:59 14:59 Intake Total 360 / 360 120 / 120 Output Total 200 / 200 200 / 400 200 / 200 Balance 160 / 160 -200 / -40 -80 / -80 Weight last 48 hrs Weight 139 lb 11.2 oz Weight 135 lb 8 oz Physical Exam 2 Narrative: Radial nerve continues to be intact braces in place. Data 04/01/24 05:23 04/01/24 05:23 Micro: Microbiology 03/30/24 18:30 Urine Culture - Preliminary Urine,Clean Catch Gram Negative Rods A&P Assessment and plan (1) Closed right humeral fracture: Continue brace we will see her in clinic and recheck x-rays. Qualifiers: Encounter type: initial encounter Fracture alignment: displaced F racture morphology: spiral Humerus Location: shaft Qualified Code(s): S42.341A - Displaced spiral fracture of shaft of humerus, right arm, initial encounter for closed fracture PDMP PDMP Reviewed: Not Reviewed Attestations 2 Medical Necessity Statement*: Per primary service Coding Level of Care Code Acute Code for Chg Fwd Diagnoses Closed displaced spiral fracture of shaft of right humerus, initial encounter S42.341A Encounter type: initial encounter Fracture alignment: displaced Fracture morphology: spiral Humerus Location: shaft
[2024-04-01 12:56] VITALS: BP 125/82; PULSE 101; O2SAT 97
--- NOTE | 2024-04-01 16:51 | PM.DCS ---
Discharge Providers Date of Admission: 03/30/24 11:09 Date of Discharge: April 01, 2024 Attending Provider at Admission: Elier Curran Attending Provider at Discharge: Heena Pickard MD Primary Care Provider: ROOPA Quezada Diagnoses at Discharge Discharge Diagnosis (1) Closed right humeral fracture: Status: Acute Qualifiers: Encounter type: initial encounter Fracture alignment: displaced Fracture morphology: spiral Humerus Location: shaft Qualified Code(s): S42.341A - Displaced spiral fracture of shaft of humerus, right arm, initial encounter for closed fracture Reason for Visit Reason for Visit: right humerus fx Hospital Course Hospital Course 53-year-old lady, current smoker, with history of NASEEM, sustained a fall on 03/29 at which time was seen by EMS after she was able to get herself back to the house from outside where she fell, at that time she declined being transported to the hospital, however, could not get around at home, did not feel well, he was having pain in her right arm, EMS was called back. On reassessment was found to have deformity of right upper extremity. x-ray showed comminuted spiral fracture of the upper humerus with some displacement, fracture extending into the greater tuberosity. She was evaluted by orthopedics. Non operative management with clamshell brace recommended. This was arranged and patient has the recommended brace on at discharge. Her EtOH level was 75 on arrival, she was monitored for signs of alchol withdrawal, CIWA this mornign is at zero. She had pyruia and diagnosed with UTI. Empirically treated with ceftriaxone during admission, discharged with oral levofloxacin empirically for 5 days. Urine culture is pending at the time of discharge. Preliminarily showing gram-negative rods. Physical Exam Narrative: General: No acute distress, AO x3 HEENT: PERRLA, pupils bilaterally equal and reactive, pallors not present Chest: Normal vesicular breath sounds, no added sounds, equal good air entry bilaterally CVS: S1-S2 regular, no murmurs, no tachycardia, no gallops, no rubs Abdomen: Soft, nontender, no organomegaly, bowel sounds present Neuro: No focal deficits, no facial deformity, AO x3, power 5/5 in all limbs Discharge Data Studies Completed and Pending Completed Studies During Hospitalization Category Date Time Status CT cervical spin wo con* [id number] Stat Cat Scan 03/30/24 09:[address] head wo con* [id number] Stat Cat Scan 03/30/24 09:04 Completed XR chest 1V portable [id number] Stat Exams 03/30/24 09:04 [place] [id number] Stat Exams 03/30/24 09:04 Completed Pending at discharge Category Date Time Status Urine Culture Stat Lab 03/30/24 18:30 Results Radiology Impressions Cervical Spine CT 03/30/24 09:04 IMPRESSION: 1. No acute cervical spine fracture. 2. Left-sided facet joint arthropathy most significant at C3-4 and C4-5. 3. No high-grade central stenosis. Chest X-Ray 03/30/24 09:04 IMPRESSION: 1. No acute cardiopulmonary finding. Head CT 03/30/24 09:04 IMPRESSION: 1. No acute intracranial hemorrhage or edema. 2. Moderate cerebral atrophy and small vessel disease. More than expected for a patient of this age. 3. Numerous bilateral lacunar infarcts as above. Humerus X-Ray 03/30/24 09:04 IMPRESSION: 1. Comminuted spiral fracture of the upper humerus with some displacement as noted above. The fracture extends into the greater tuberosity. Laboratory Results WBC 7.69 10^3/uL (3.29-11.43) 04/01/24 05:23 RBC 3.33 10^6/uL (3.85-5.65) L 04/01/24 05:23 Hgb 10.10 g/dL (11.27-16.99) L 04/01/24 05:23 Hct 32.2 % (36-47) L 04/01/24 05:23 MCV 96.7 fl (85-98) 04/01/24 05:23 MCH 30.3 pg (27-33) 04/01/24 05:23 MCHC 31.4 g/dL (30-55) 04/01/24 05:23 RDW 14.9 % (12.1-15.1) 04/01/24 05:23 Plt Count 198 10^3/cmm (157-399) 04/01/24 05:23 MPV 10.7 fL (7.4-10.4) H 04/01/24 05:23 Neut % (Auto) 77.2 % 04/01/24 05:23 Lymph % (Auto) 14.0 % 04/01/24 05:23 [place] % (Auto) 6.9 % 04/01/24 05:23 Eos % (Auto) 0.7 % 04/01/24 05:23 Baso % (Auto) 0.5 % 04/01/24 05:23 Neut # (Auto) 5.94 10^3/uL (1.8-7.7) 04/01/24 05:23 Lymph # (Auto) 1.1 10^3/uL (0.8-4.8) 04/01/24 05:23 [place] # (Auto) 0.5 10^3/uL (0.2-0.9) 04/01/24 05:23 Eos # (Auto) 0.1 10^3/uL (0.0-0.8) 04/01/24 05:23 Baso # (Auto) 0.0 10^3/uL (0.0-0.1) 04/01/24 05:23 Nucleated RBC % (auto) 0 % 04/01/24 05: Nucleated RBCs # 0.0 /100WBC 04/01/24 05:23 PT 12.70 SECONDS (12.1-14.9) 03/30/24 09:30 INR 0.89 (0.8-1.2) 03/30/24 09:30 Sodium 133 mmol/L (136-145) L 04/01/24 05:23 Potassium 3.7 mmol/L (3.5-5.1) 04/01/24 05:23 Chloride 97 mmol/L (98-107) L 04/01/24 05:23 Carbon Dioxide 24 mmol/L (22-29) 04/01/24 05:23 Anion Gap 15.7 (5-19) 04/01/24 05:23 BUN 19 mg/dL (6-20) 04/01/24 05:23 Creatinine 0.8 mg/dL (0.5-0.9) 04/01/24 05:23 GFR Calculation 74.7 mL/min (90-130) L 04/01/24 05:23 Glucose 120 mg/dL (65-115) H 04/01/24 05:23 Calculated Osmolality 279 mOsm/kg (285-295) L 04/01/24 05:23 Calcium 9.1 mg/dL (8.5-10.5) 04/01/24 05:23 Total Bilirubin 0.4 mg/dL (0.15-1.2) 04/01/24 05:23 AST 28 U/L (0-32) 04/01/24 05:23 ALT 14 U/L (0-33) 04/01/24 05:23 Alkaline Phosphatase 100 U/L (35-105) 04/01/24 05: Ammonia 19 umol/L (11-51) 03/30/24 09:30 Creatine Kinase 223 U/L (26-192) H 03/30/24 09:30 Total Protein 7.0 g/dL (6.6-8.7) 04/01/24 05: Albumin 3.6 g/dL (3.5-5.2) 04/01/24 05: Globulin 3.4 g/dL (1.3-4.6) 04/01/24 05: Lipase 23 U/L (13-60) 03/30/24 09:30 Urine Color [place] (Yellow) A 03/30/24 18:30 Urine Appearance Turbid (CLEAR) A 03/30/24 18:30 Urine pH 6.0 (5-7) 03/30/24 18:30 Ur Specific [place] 1.024 (1.005-1.030) 03/30/24 18:30 Urine Protein 1+ (Negative) A 03/30/24 18:30 Urine Glucose (UA) Negative (Normal) 03/30/24 18:30 Urine Ketones Trace (Negative) 03/30/24 18:30 Urine Blood Trace (Negative) A 03/30/24 18:30 Urine Nitrate Negative (Negative) 03/30/24 18:30 Urine Bilirubin 1+ (Negative) H 03/30/24 18:30 Urine Urobilinogen 1.0 mg/dL (Negative) 03/30/24 18:30 Ur Leukocyte Esterase 2+ (Negative) A 03/30/24 18:30 Urine RBC 0-4 /hpf (0-2) H 03/30/24 18:30 Urine WBC >100 /hpf (0-5) H 03/30/24 18:30 Ur Squamous Epith Cells 0-4 /hpf (0-5) H 03/30/24 18:30 Amorphous Sediment Not Reportable 03/30/24 18:30 Urine Bacteria 4+ /hpf (NONE) H 03/30/24 18:30 Ethyl Alcohol 75 mg/dL (0-10) H 03/30/24 09:30 Influenza A (PCR) Negative (Negative) 03/31/24 17:42 Influenza Type B (PCR) Negative (Negative) 03/31/24 17:42 RSV (PCR) Negative (Negative) 03/31/24 17:42 SARS-CoV-2 (PCR) Negative (Negative) 03/31/24 17:42 Vitals Last Vital Signs Temp 98.1 F 04/01/24 11:25 Pulse 101 H 04/01/24 12:56 Resp 16 04/01/24 11:25 BP 125/82 04/01/24 12:56 Pulse Ox 97 04/01/24 12:56 O2 Del Method Room Air 04/01/24 11:25 Discharge Plan Discharge Patient Disposition: Home Condition: Stable Prescriptions: New thiamine mononitrate (vit B1) [Vitamin B-1 (mononitrate)] 100 mg Tablet 100 mg PO DAILY 30 Days Qty: 30 0RF levofloxacin 750 mg tablet 750 mg PO DAILY 5 Days Qty: 5 0RF hydrocodone-acetaminophen 5-325 mg Tablet 1 tab PO Q8H PRN (Reason: Moderate Pain) 5 Days Qty: 15 0RF Continued lisinopril 20 mg tablet 20 mg PO DAILY Discharge Orders: Discharge Order (Routine); Ordered 04/01/24 Ordered By: Heena Pickard Referrals: Aurora Garrido, [employer] [Primary Care Provider] - 7-10 days (You will need to contact your primary care provider tomorrow 04/02/24 at [phone] to make a follow up appointment within 7-10 days.) Patient Instructions: Thiamine (By mouth), Levofloxacin (By mouth), Fractures - Humerus, Alcohol Dependence (DC), Opioid Safety Discharge Attestations Time Spent in Discharge Care*: greater than 30 min Quality Metrics Clinical Quality Measures [ No reported AMI, CVA or VTE this stay] Coding Level of Care Code Acute Code for Chg Fwd Diagnoses Closed displaced spiral fracture of shaft of right humerus, initial encounter S42.341A Encounter type: initial encounter Fracture alignment: displaced Fracture morphology: spiral Humerus Location: shaft
== END 2024-04-01 12:58 | disposition home or self-care (01) | DRG 563 ==
LOC: ER 09:39 → ER IP 11:10 → MEDSURG 11:40
PROVIDERS: Admitting Provider Internal Medicine; Emergency Provider Family Medicine; PCP Nurse Practitioner; Visit Provider Student in an Organized Health Care Education/Training Program
DX: S42.341A Displaced spiral fracture of shaft of humerus, right arm, initial encounter for closed fracture (principal); N39.0 Urinary tract infection, site not specified; W18.30XA Fall on same level, unspecified, initial encounter; F10.129 Alcohol abuse with intoxication, unspecified; Y90.3 Blood alcohol level of 60-79 mg/100 ml; F17.210 Nicotine dependence, cigarettes, uncomplicated; F41.1 Generalized anxiety disorder
CPT/HCPCS: 36415; 70450; 71045; 72125; 73060; 80053; 80307; 81001; 82140; 82550; 83690; 85025; 85610; 87077; 87086; 87186; 87637; 93005; 97760; 99285; J0360; J0696; J2270; L3980

== ENCOUNTER → 2024-06-20 14:55 | Outpatient (BNVA) | payer MEDICAID, SELFPAY | PROVIDERS: PCP Nurse Practitioner; Visit Provider Student in an Organized Health Care Education/Training Program | DX: S42.341A Displaced spiral fracture of shaft of humerus, right arm, initial encounter for closed fracture (principal); Z53.21 Procedure and treatment not carried out due to patient leaving prior to being seen by health care provider; W00.0XXA Fall on same level due to ice and snow, initial encounter | CPT/HCPCS: 73060 ==